=== PATIENT | female | born 1980 | race Caucasian/White ===

== ENCOUNTER 2020-11-13 12:34 | Emergency (ER) | payer SELFPAY ==
[~2020-11-13] VITALS: Ht 167.6 cm; Wt 70.0 kg
[2020-11-13 12:37] VITALS: BP 120/94
== END 2020-11-13 15:31 | disposition left against medical advice (07) ==
LOC: ER 14:13
DX: Z53.21 Procedure and treatment not carried out due to patient leaving prior to being seen by health care provider (principal); Z00.00 Encounter for general adult medical examination without abnormal findings; R10.9 Unspecified abdominal pain; Z88.2 Allergy status to sulfonamides; Z88.8 Allergy status to other drugs, medicaments and biological substances

== ENCOUNTER 2022-02-03 07:53 | Inpatient (IN) | payer SELFPAY ==
[~2022-02-03] VITALS: Ht 170.2 cm; Wt 88.0 kg
[2022-02-03] MEDS ORDERED: KETOROLAC 30MG/ML VIAL IV STA (09:17)
[2022-02-03] MEDS ORDERED: ONDANSETRON HCL 4MG/2ML INJ IV STA ×2 (09:17→12:00)
[2022-02-03] MEDS ORDERED: SODIUM CHLORIDE 0.9% 1,000 ML IV ONE (09:30)
[2022-02-03 09:59] LABS: HEMATOCRIT. 37.7 % (36.0-48.0); MEAN CORPUSCULAR HEMOGLOBIN 30.3 pg (28.0-32.0); MEAN CORPUSCULAR VOLUME 88.1 fL (81.0-99.0); MEAN PLATELET VOLUME 11.4 fl (7.4-10.4); PLATELET 186 x1000/uL (130-400); RED BLOOD CELL COUNT 4.28 mill/uL (4.2-5.4); RED CELL DISTRIBUTION WIDTH 15.1 % (11.6-14.6)
[2022-02-03 10:08] LABS: CHLORIDE 105 mEq/L (98-107)
[2022-02-03 10:14] LABS: HCG SCREEN NEGATIVE
[2022-02-03 10:27] LABS: PLATELET ESTIMATE NORMAL
[2022-02-03] MEDS ORDERED: MORPHINE SULFATE 4 MG/ML CPJ (NOT FOR IM USE) IV STA (12:00)
[2022-02-03 12:31] LABS: CLARITY URINE CLOUDY (CLEAR); COLOR URINE ORANGE (YELLOW); KETONES URINE 4+ (NEGATIVE); LEUKOCYTE ESTERASE URINE 1+ (NEGATIVE); NITRITE URINE POSITIVE (NEGATIVE); OCCULT BLOOD URINE 3+ (NEGATIVE); PROTEIN URINE 2+ (NEGATIVE)
[2022-02-03] MEDS ORDERED: CEFTRIAXONE 1 G PREMIX 50 ML IV ONE (14:15)
[2022-02-03] MEDS: SODIUM CHLORIDE 0.9% 1,000 ML IV SCH ×3 (16:00→21:45)
[2022-02-03] MEDS ORDERED: ONDANSETRON HCL 4MG/2ML INJ IV PRN (16:00)
[2022-02-03] MEDS ORDERED: MORPHINE SULFATE 2 MG/ML CPJ (NOT FOR IM USE) IV PRN (16:00)
[2022-02-03] MEDS ORDERED: BISACODYL 10MG SUPP PR PRN (16:45)
[2022-02-03] MEDS ORDERED: BISACODYL 10MG SUPP PR NR (17:00)
[2022-02-03 20:00] VITALS: BP 116/72
[2022-02-03] MEDS: MORPHINE SULFATE 2 MG/ML CPJ (NOT FOR IM USE) IV PRN (21:40)
[2022-02-03] MEDS: ONDANSETRON HCL 4MG/2ML INJ IV PRN (21:45)
[2022-02-03] MEDS: PIPERACILLIN/TAZOBACTAM 3.375 G in DEXTROSE 5% WATER 50 ML IV SCH (21:53)
[2022-02-04] VITALS (7 sets, daily range): BP systolic 116–131; BP diastolic 68–82
[2022-02-04] MEDS: SODIUM CHLORIDE 0.9% 1,000 ML IV SCH ×3 (01:25→21:30)
[2022-02-04] MEDS: MORPHINE SULFATE 2 MG/ML CPJ (NOT FOR IM USE) IV PRN ×3 (01:25→10:55)
[2022-02-04] MEDS: ONDANSETRON HCL 4MG/2ML INJ IV PRN ×4 (01:29→17:54)
[2022-02-04] MEDS ORDERED: IBUP-2778 MT (01:39)
[2022-02-04] MEDS: PIPERACILLIN/TAZOBACTAM 3.375 G in DEXTROSE 5% WATER 50 ML IV SCH ×3 (04:20→23:01)
[2022-02-04] MEDS: PANTOPRAZOLE SODIUM 40 MG/VIAL IV SCH (08:56)
[2022-02-04] MEDS ORDERED: HYDROMORPHONE HCL/PF 2MG/ML CPJ IV PRN (12:30)
[2022-02-04] MEDS ORDERED: LORAZEPAM 0.5MG TABLET PO PRN (12:45)
[2022-02-04] MEDS ORDERED: NALOXONE HCL 0.4MG/ML VIAL IV PRN (13:00)
[2022-02-04 16:08] LABS: BASOPHILS % 0.3 % (0.0-2.0); EOSINOPHILS % 0.3 % (0.0-5.0); HEMATOCRIT. 32.2 % (36.0-48.0); HEMOGLOBIN. 11.1 g/dL (12.0-16.0); MEAN CORPUSCULAR HEMOGLOBIN 30.7 pg (28.0-32.0); MEAN CORPUSCULAR VOLUME 88.9 fL (81.0-99.0); MONOCYTES % 6.6 % (2.0-8.0); NEUTROPHILS % 82.8 % (40.0-76.0); PLATELET 119 x1000/uL (130-400); RED BLOOD CELL COUNT 3.62 mill/uL (4.2-5.4); RED CELL DISTRIBUTION WIDTH 15.2 % (11.6-14.6)
[2022-02-04 16:27] LABS: CHLORIDE 104 mEq/L (98-107)
[2022-02-04 16:35] LABS: HDL CHOLESTEROL 16 mg/dL (40-59); LDL CHOLESTEROL 58 mg/dL (5-100)
[2022-02-04 16:54] LABS: HEPATITIS B SURFACE ANTIGEN NEGATIVE
[2022-02-04] MEDS: HYDROMORPHONE HCL/PF 2MG/ML CPJ IV PRN (17:54)
[2022-02-04] MEDS: KCL 20MEQ/100ML PREMIX 100 ML IV SCH ×2 (20:18→23:22)
[2022-02-05] VITALS: BP 125/75
[2022-02-05] MEDS: HYDROMORPHONE HCL/PF 2MG/ML CPJ IV PRN ×2 (00:38→06:38)
[2022-02-05 04:00] VITALS: BP 109/57
[2022-02-05] MEDS: SODIUM CHLORIDE 0.9% 1,000 ML IV SCH (05:30)
[2022-02-05] MEDS: ONDANSETRON HCL 4MG/2ML INJ IV PRN (06:40)
[2022-02-05] MEDS: PIPERACILLIN/TAZOBACTAM 3.375 G in DEXTROSE 5% WATER 50 ML IV SCH (06:40)
[2022-02-05 07:41] LABS: BASOPHILS % 0.3 % (0.0-2.0); EOSINOPHILS % 0.5 % (0.0-5.0); HEMATOCRIT. 31.9 % (36.0-48.0); HEMOGLOBIN. 10.9 g/dL (12.0-16.0); LYMPHOCYTES % 12.7 % (20.0-50.0); MEAN CORPUSCULAR HEMOGLOBIN 30.7 pg (28.0-32.0); MEAN CORPUSCULAR VOLUME 89.8 fL (81.0-99.0); MEAN PLATELET VOLUME 11.3 fl (7.4-10.4); MONOCYTES % 6.9 % (2.0-8.0); NEUTROPHILS % 79.6 % (40.0-76.0); PLATELET 123 x1000/uL (130-400); RED BLOOD CELL COUNT 3.56 mill/uL (4.2-5.4)
[2022-02-05 07:50] VITALS: BP 126/77
[2022-02-05] MEDS: PANTOPRAZOLE SODIUM 40 MG/VIAL IV SCH (08:48)
[2022-02-05 09:06] LABS: CHLORIDE 103 mEq/L (98-107)
== END 2022-02-05 09:45 | disposition left against medical advice (07) | DRG 720 ==
LOC: ER 08:09 → 8WST 14:22 → EDBEDREQTM 14:28 → EDBEDREQ 14:28
PROVIDERS: ADMIT Internal Medicine; ATTEND Internal Medicine
DX: A41.9 Sepsis, unspecified organism (principal); K85.90 Acute pancreatitis without necrosis or infection, unspecified; K83.1 Obstruction of bile duct; E87.1 Hypo-osmolality and hyponatremia; R16.0 Hepatomegaly, not elsewhere classified; N39.0 Urinary tract infection, site not specified; E80.6 Other disorders of bilirubin metabolism; R74.01 Elevation of levels of liver transaminase levels; N83.201 Unspecified ovarian cyst, right side; N92.0 Excessive and frequent menstruation with regular cycle; J44.9 Chronic obstructive pulmonary disease, unspecified; F10.21 Alcohol dependence, in remission; F17.210 Nicotine dependence, cigarettes, uncomplicated; F12.10 Cannabis abuse, uncomplicated; N63.20 Unspecified lump in the left breast, unspecified quadrant; N94.89 Other specified conditions associated with female genital organs and menstrual cycle; Z53.29 Procedure and treatment not carried out because of patient's decision for other reasons; Z82.49 Family history of ischemic heart disease and other diseases of the circulatory system; Z88.1 Allergy status to other antibiotic agents; Z82.5 Family history of asthma and other chronic lower respiratory diseases; Z83.3 Family history of diabetes mellitus; Z91.410 Personal history of adult physical and sexual abuse
CPT/HCPCS: 36415; 71045; 74176; 76705; 76830; 76856; 80048; 80053; 80061; 80076; 81003; 82105; 82378; 84703; 85025; 86301; 86304; 86705; 86709; 86803; 87340; 93005; 93970; 99285; C1893; C9113; J0696; J1170; J1885; J2270; J2405; J2543; J3480; J7030; J7060